=== PATIENT | female | born 1945 | race Caucasian/White ===

== ENCOUNTER → 2016-11-29 | Outpatient (CLI) | payer MEDICARE, BC ==
[~2016-11-29] MED LIST: ASPIRIN EC81 MG PO
== END ==
LOC: RAD 11:46
DX: R05 Cough (principal); R53.83 Other fatigue; I10 Essential (primary) hypertension; R60.0 Localized edema
CPT/HCPCS: 71020

== ENCOUNTER → 2016-12-13 | Outpatient (CLI) | payer MEDICARE, BC | LOC: MAMO 10:22 | DX: Z12.31 Encounter for screening mammogram for malignant neoplasm of breast (principal) | CPT/HCPCS: G0202 ==

== ENCOUNTER → 2016-12-26 | Outpatient (CLI) | payer MEDICARE, BC | LOC: KOH-I 10:48 | DX: J20.8 Acute bronchitis due to other specified organisms (principal); Z88.5 Allergy status to narcotic agent; N26.1 Atrophy of kidney (terminal); N28.89 Other specified disorders of kidney and ureter | CPT/HCPCS: 71260; Q9962 ==

== ENCOUNTER → 2017-01-01 | Outpatient (CLI) | payer MEDICARE, BC | LOC: OPSV 11:27 | DX: R10.817 Generalized abdominal tenderness (principal); K52.1 Toxic gastroenteritis and colitis; R05 Cough; R53.83 Other fatigue; R06.02 Shortness of breath; E86.0 Dehydration; R10.84 Generalized abdominal pain | CPT/HCPCS: 36415; 82550; 83880; 84484; 85379; 96360; 96361; J7030 ==

== ENCOUNTER → 2020-12-13 | Outpatient (CLI) | payer MEDICARE, BC ==
[~2020-12-13] MED LIST changes: +BUSPIRONE HCL5 MG PO; +COZAAR100 MG PO; +INDERAL TAB 2020 MG PO; +LASIX20 MG PO; +LEVOTHYROXINE50 MCG PO; +LEXAPRO10 MG PO; +LIPITOR TAB 2020 MG PO; +NORVASC5 MG PO; +PROAIR HFA8.5 GM INH
[2020-12-13 10:04] LABS: HEMOGLOBIN 15.4 gm/dl (12.3-15.3); RED BLOOD COUNT 5.6 M/UL (4.00-5.10); WHITE BLOOD COUNT 10.2 K/UL (4.5-11.0)
[2020-12-13 10:33] LABS: BUN/CREATININE RATIO 13 (0-10)
[2020-12-15 11:15] LABS: CHOLESTEROL, TOTAL 142 mg/dL (100-199); HDL SIZE 9.4 nm (>=9.2); HDL-C 54 mg/dL (>39); HDL-P (TOTAL) 33.5 umol/L (>=30.5); LARGE HDL-P 6.4 umol/L (>=4.8); LARGE VLDL-P 2.9 nmol/L (<=2.7); LDL SIZE 20.6 nm (>20.5); LDL SIZE 20.6 nm (>=20.8); LDL-C 72 mg/dL (0-99); LDL-P 889 nmol/L (<1000); LP-IR SCORE 47 (<=45); SMALL LDL-P 427 nmol/L (<=527); TRIGLYCERIDES 82 mg/dL (0-149); VLDL SIZE 48.9 nm (<=46.6)
== END ==
LOC: LAB 09:27
PROVIDERS: Emergency Medicine
DX: E78.2 Mixed hyperlipidemia (principal); R30.0 Dysuria; E03.8 Other specified hypothyroidism
CPT/HCPCS: 36415; 80053; 80061; 83704; 84443; 84550; 85025

== ENCOUNTER → 2021-01-02 | Outpatient (CLI) | payer MEDICARE, BC | LOC: MAMO 08:45 | DX: M81.0 Age-related osteoporosis without current pathological fracture (principal); Z12.31 Encounter for screening mammogram for malignant neoplasm of breast; M85.852 Other specified disorders of bone density and structure, left thigh | CPT/HCPCS: 77063; 77067; 77080 ==